=== PATIENT | female | born 1970 | race Caucasian/White ===

== ENCOUNTER 2023-10-08 04:22 | Day surgery (SDC) | payer OTHER ==
[2023-10-05 09:11] VITALS: BMI 26.1
[2023-10-08] MEDS ORDERED: MIDAZOLAM HCL 2 MG/2 ML SINGLE DOSE VIAL ONE (11:26)
[2023-10-08] MEDS ORDERED: PROPOFOL 20 ML ONE (11:26)
[2023-10-08] MEDS ORDERED: ONDANSETRON 4 MG/2 ML VIAL IVPUSH PRN (11:42)
[2023-10-08] MEDS ORDERED: oxyCODONE HCL 5 MG TABLET PO PRN (11:42)
[2023-10-08] MEDS ORDERED: PROMETHAZINE HCL 25 MG/1 ML VIAL IVPB PRN (11:42)
[2023-10-08] MEDS ORDERED: ACETAMINOPHEN 1000 MG/100 ML BAG IVPB PRN (11:43)
[2023-10-08] MEDS ORDERED: LACTATED RINGERS SOLUTION 1,000 ML IV SCH (11:45)
[2023-10-08] MEDS ORDERED: LIDOCAINE HCL/PF 2% SDV 5ML VIAL ONE (11:53)
[2023-10-08] MEDS ORDERED: KETOROLAC TROMETHAMINE 30 MG/1 ML VIAL ONE (11:53)
[2023-10-08] MEDS ORDERED: DEXAMETHASONE SOD PHOSPHATE 4 MG/1 ML VIAL ONE (11:53)
[2023-10-08] MEDS ORDERED: ceFAZolin SODIUM 1 GM VIAL IVPB ONE (12:00)
[2023-10-08] MEDS ORDERED: ceFAZolin SODIUM 1 GM VIAL ONE (12:00)
[2023-10-08 14:33] VITALS: RESP 18
[2023-10-08 16:15] VITALS: BP 113/68; PULSE 74; TEMP 97.8
== END 2023-10-08 15:50 | disposition home or self-care (01) ==
LOC: JASU-SURG 04:22
PROVIDERS: ATTEND Obstetrics & Gynecology
PROC: 0UB98ZZ Excision of Uterus, Via Natural or Artificial Opening Endoscopic (ICD-10-PCS; principal; 2023-10-08 11:00)
DX: N95.0 Postmenopausal bleeding (principal); N84.0 Polyp of corpus uteri
CPT/HCPCS: 88305-TC; 94760; J0131